=== PATIENT | female | born 1945 | race Caucasian/White ===

== ENCOUNTER → 2016-11-08 | Outpatient (CLI) | payer OTHER | LOC: MMPC 09:00 | PROVIDERS: ATTEND Nurse Practitioner Family | DX: J11.1 Influenza due to unidentified influenza virus with other respiratory manifestations (principal) | CPT/HCPCS: 99213; G0463 ==

== ENCOUNTER → 2016-11-19 | Outpatient (CLI) | payer OTHER | LOC: MMPC 10:00 | PROVIDERS: ATTEND Physician Assistant Medical | DX: R21 Rash and other nonspecific skin eruption (principal) | CPT/HCPCS: 99212; G0463 ==

== ENCOUNTER → 2017-03-20 | Outpatient (CLI) | payer OTHER ==
[2017-03-20 13:33] LABS: BUN/CREATININE RATIO 21.25 (6-20); CHOL/HDL RATIO 2.69 RATIO (0-4.0); LDL CHOLESTEROL,CALCULATED 113.2 mg/dL
[2017-03-20 13:36] LABS: BASOPHILS # (AUTO) 0.05 10*3/UL; BASOPHILS % (AUTO) 0.9 % (0-1); EOSINOPHILS # (AUTO) 0.12 10*3/UL; EOSINOPHILS % (AUTO) 2.1 % (0-8); HEMATOCRIT 41.7 % (37.0-47.0); HEMOGLOBIN 13.4 g/dL (12.0-16.0); LYMPHOCYTES # (AUTO) 1.28 10*3/uL; MEAN CORPUSCULAR HEMOGLOBIN 29.5 PG (27-31); MEAN CORPUSCULAR HGB CONC 32.1 g/dL (33-37); MEAN CORPUSCULAR VOLUME 91.6 FL (81-99); MEAN PLATELET VOLUME 11.6 FL (7.4-12.2); MONOCYTES # (AUTO) 0.59 10*3/UL (0.3-0.8); MONOCYTES % (AUTO) 10.3 % (5-15); NEUTROPHILS # (AUTO) 3.68 10*3/UL; NEUTROPHILS % (AUTO) 64.2 % (50-80); RED BLOOD COUNT 4.55 10^6/uL (4.20-5.40)
[2017-03-20 13:43] LABS: PLATELET MORPHOLOGY COMMENT NORMAL MORPHOLOGY (NORM); RBC MORPHOLOGY COMMENT NORMAL MORPHOLOGY (NORM); WBC MORPHOLOGY COMMENT NORMAL MORPHOLOGY (NORM)
== END ==
LOC: MOB LAB 09:22
PROVIDERS: ATTEND Nurse Practitioner Family
DX: M54.2 Cervicalgia (principal); I10 Essential (primary) hypertension; K21.9 Gastro-esophageal reflux disease without esophagitis; Z98.84 Bariatric surgery status
CPT/HCPCS: 36415; 80053; 80061; 84443; 85025